=== PATIENT | male | born 1970 | race Caucasian/White ===

== ENCOUNTER → 2021-05-29 12:11 | Outpatient (CLI) | payer BC, SELFPAY ==
--- NOTE | 2021-05-29 | DI.US.S_ITS ---
PROCEDURE: US AXILLARY ONLY INDICATIONS: ACUTE PAIN OF RIGHT SHOULDER TECHNIQUE: Real-time focused scanning was performed of the right axilla, with image documentation. COMPARISON: [facility], [place], XR SHOULDER 2+ VIEWS RIGHT, 05/16/2021, 14:26. FINDINGS: No right axillary adenopathy. No mass or fluid collection. IMPRESSION: No right axillary adenopathy. Exam findings conveyed to the patient. Dictated by: Rico Lomax M.D. on 05/29/2021 at 13:00 Approved by: Rico Lomax M.D. on 05/29/2021 at 13:03
== END ==
PROVIDERS: PCP Internal Medicine; Referring Provider Orthopaedic Surgery; Visit Provider Orthopaedic Surgery
DX: M25.511 Pain in right shoulder (principal)
CPT/HCPCS: 76882